=== PATIENT | female | born 1985 | race Caucasian/White ===

== ENCOUNTER 2017-11-14 00:09 | Inpatient (IN) | payer OTHER ==
[2017-11-14] MEDS ORDERED: Carboprost Tromethamine 250 MCG/1 ML Amp IM PRN (00:14)
[2017-11-14] MEDS ORDERED: Sodium Chloride 0.9% 10 ML Syringe FLUSH PRN (00:14)
[2017-11-14] MEDS ORDERED: Methylergonovine 0.2 MG/1 ML Amp IM PRN (00:14)
[2017-11-14] MEDS ORDERED: Nalbuphine 10 MG/1 ML Vial IVPUSH PRN (00:14)
[2017-11-14] MEDS ORDERED: Lidocaine 1% 50 ML MDV INJECT PRN (00:14)
[2017-11-14] MEDS ORDERED: Butorphanol 1 MG/ML SDV IVPUSH PRN (00:14)
[2017-11-14] MEDS ORDERED: Terbutaline 1 MG/ML SDV SUBCUT PRN (00:14)
[2017-11-14] MEDS ORDERED: Misoprostol 200 MCG Tab PO PRN (00:14)
[2017-11-14] MEDS ORDERED: Water For Irrigation,Sterile 1,000 ML Container IRR PRN (00:14)
[2017-11-14] MEDS ORDERED: Sodium Chloride 0.9% 2.5 ML Syringe FLUSH PRN (00:14)
[2017-11-14] MEDS ORDERED: Oxytocin/0.9 % Sodium Chloride 30 UNIT/500 ML BAG IV SCH (00:15)
[2017-11-14] MEDS ORDERED: Lactated Ringers 1,000 ML IV SCH (00:15)
[2017-11-14] MEDS ORDERED: Misoprostol 25 MCG (1/4 of 100 MCG) Tab VAG SCH (00:15)
[2017-11-14] MEDS: Misoprostol 25 MCG (1/4 of 100 MCG) Tab PO SCH (01:51)
--- NOTE | 2017-11-14 07:11 | PCM.LDHP ---
L&D History of Present Illness - General Date of Service: 11/14/17 Admit Problem/Dx: Patient Status Order with Admit Dx/Problem 11/14/17 00:14 Patient Status [ADT] Routine Admission Diagnosis/Problem Admission Diagnosis/Problem - planned 11/14/17 07:06 32yo EDC 11/14/2017 40wk today. IOL term, A+/RI/GBS neg. Source of Information: Patient History Limitations: Reports: No Limitations - History of Present Illness Improves with: Reports: None Worsens with: Reports: None Associated Symptoms: Reports: N - Related Data Allergies/Adverse Reactions: Allergies Allergy/AdvReac Type Severity Reaction Status Date / Time No Known Allergies Allergy Verified 11/14/17 00:14 Past Medical History - Past Health History Medical/Surgical History: Denies Medical/Surgical History [employer] History: Reports: Social & Family History - Family History Family Medical History: Noncontributory - Tobacco Use Smoking Status *Q: Former Smoker Years of Tobacco use: 3 Packs/Tins Daily: 0.5 Used Tobacco, but Quit: Yes Month Tobacco Last Used: February Second Hand Smoke Exposure: No - Caffeine Use Caffeine Use: Reports: Coffee - Recreational Drug Use Recreational Drug Use: No H&P Review of Systems - Review of Systems: Review Of Systems: See Below General: Reports: No Symptoms HEENT: Reports: No Symptoms Pulmonary: Reports: No Symptoms Cardiovascular: Reports: No Symptoms Gastrointestinal: Reports: No Symptoms Genitourinary: Reports: No Symptoms Musculoskeletal: Reports: No Symptoms Skin: Reports: No Symptoms Psychiatric: Reports: No Symptoms Neurological: Reports: No Symptoms Hematologic/Lymphatic: Reports: No Symptoms Immunologic: Reports: No Symptoms L&D Exam - Exam Exam: See Below - Vital Signs Weight: 98.43 kg - OB Specific Contraction Intensity: Mild to Moderate Movement: Active Heart Tones: Present Heart Rate (FHR) Variability: Moderate (6-25 bmp) Presentation: Vertex - Yu Score Yu Score Cervix Position: Posterior Yu Score Consistency: Medium Yu Score Effacement: 31-50% Yu Score Dilation: Closed Yu Score 's Station: -2 Yu Score Total: 3 - Exam General: Alert, Oriented, Cooperative HEENT: Hearing Intact Lungs: Clear to Auscultation, Normal Respiratory Effort Cardiovascular: Regular Rate, Regular Rhythm, Normal S1, Normal S2 GI/Abdominal Exam: Soft, Non-Tender (GRAVID) Rectal Exam: Deferred Back Exam: Full Range of Motion Extremities: Normal Range of Motion, Non-Tender, No Pedal Edema, Normal Capillary Refill Neurological: Reflexes Equal Bilateral, Normal Speech, Normal Tone Psychiatric: Alert, Normal Affect, Normal Mood - Patient Data Lab Results Last 24 hrs: Laboratory Results - last 24 hr 11/14/17 11/14/17 Range/Units 00:35 00:35 WBC 15.08 H (4.0-11.0) K/uL RBC 3.95 L (4.30-5.90) M/uL Hgb 12.4 (12.0-16.0) g/dL Hct 37.2 (36.0-46.0) % MCV 94.2 (80.0-98.0) fL MCH 31.4 (27.0-32.0) pg MCHC 33.3 (31.0-37.0) g/dL RDW Std Deviation 43.0 (28.0-62.0) fl RDW Coeff of Carol Ann 13 (11.0-15.0) % Plt Count 215 (150-400) K/uL MPV 11.40 (7.40-12.00) fL Blood Type A POSITIVE Antibody Screen NEGATIVE Result Diagrams: 11/14/17 00:35 - Problem List (1) Supervision of normal IUP (intrauterine ) in primigravida SNOMED Code(s): 25650508, 920519077, 241271142 ICD Code: Z34.00 - ENCNTR FOR SUPRVSN OF NORMAL FIRST , UNSP TRIMESTER Status: Acute Priority: High Current Visit: Yes Qualifiers: Trimester: third trimester Qualified Code(s): Z34.03 - Encounter for supervision of normal first , third trimester Problem List Initiated/Reviewed/Updated: Yes Orders Last 24hrs: Active Orders 24 hr Category Date Time Status Patient Status [ADT] Routine ADT 11/14/17 00:14 Active Bedrest Bathroom Privileges [RC] ASDIRECTED Care 11/14/17 00:14 Active Communication Order [RC] ASDIRECTED Care 11/14/17 00:14 Active May Shower [RC] ASDIRECTED Care 11/14/17 00:14 Active Notify Provider [RC] PRN Care 11/14/17 00:14 Active Oxygen Therapy [RC] ASDIRECTED Care 11/14/17 00:14 Active Up ad Emilia [RC] ASDIRECTED Care 11/14/17 00:14 Active Vital Signs [RC] PER UNIT ROUTINE Care 11/14/17 00:14 Active Clear Liquid Diet [DIET] Diet 11/14/17 Breakfast Active Butorphanol [Stadol] Med 11/14/17 00:14 Active 1 mg IVPUSH Q1H PRN Carboprost Tromethamine [Hemabate DS] Med 11/14/17 00:14 Active 250 mcg IM ASDIRECTED PRN Lactated Ringers [Ringers, Lactated] 1,000 ml Med 11/14/17 00:15 Active IV ASDIRECTED Lidocaine 1% [Xylocaine 1%] Med 11/14/17 00:14 Active 50 ml INJECT .ONCE PRN Methylergonovine [Methergine] Med 11/14/17 00:14 Active 0.2 mg IM ASDIRECTED PRN Misoprostol [Cytotec] Med 11/14/17 00:14 Active 200 mcg PO .ONCE PRN Misoprostol [Cytotec] Med 11/14/17 00:15 Active 25 mcg PO .ONCE Misoprostol [Cytotec] Med 11/14/17 00:14 Active 25 mcg PO Q4H PRN Misoprostol [Cytotec] Med 11/14/17 00:15 Active 25 mcg VAG .ONCE Misoprostol [Cytotec] Med 11/14/17 00:14 Active 25 mcg VAG Q4H PRN Nalbuphine [Nubain] Med 11/14/17 00:14 Active 10 mg IVPUSH Q1H PRN Oxytocin/0.9 % Sodium Chloride [Oxytocin 30 Unit/500 ML Med 11/14/17 00:15 Active -NS] 30 unit in 500 ml IV TITRATE Sodium Chloride 0.9% [Saline Flush] Med 11/14/17 00:14 Active 10 ml FLUSH ASDIRECTED PRN Sodium Chloride 0.9% [Saline Flush] Med 11/14/17 00:14 Active 2.5 ml FLUSH ASDIRECTED PRN Terbutaline [Brethine] Med 11/14/17 00:14 Active 0.25 mg SUBCUT ASDIRECTED PRN Water For Irrigation,Sterile [Sterile Water for Med 11/14/17 00:14 Active Irrigation] 1,000 ml IRR ASDIRECTED PRN Scalp Electrode [WOMSER] Per Unit Routine Oth 11/14/17 00:14 Ordered Medication Administration Instruction [OM.PC] Q3H Oth 11/14/17 00:15 Ordered Peripheral IV Insertion Adult [OM.PC] Routine Oth 11/14/17 00:14 Ordered Resuscitation Status Routine Resus Stat 11/14/17 00:14 Ordered Medication Orders Butorphanol Tartrate (Stadol) 1 mg IVPUSH Q1H PRN PRN Reason: Pain Carboprost Tromethamine (Hemabate Ds) 250 mcg IM ASDIRECTED PRN PRN Reason: Post Hemorrhage Lactated Ringer's (Ringers, Lactated) 1,000 mls @ 150 mls/hr IV ASDIRECTED LESIA Oxytocin/Sodium Chloride (Oxytocin 30 Unit/500 Ml-Ns) 30 unit in 500 mls @ 999 mls/hr IV TITRATE LESIA Lidocaine HCl (Xylocaine 1%) 50 ml INJECT .ONCE PRN PRN Reason: Laceration repair Methylergonovine Maleate (Methergine) 0.2 mg IM ASDIRECTED PRN PRN Reason: Post Hemorrhage Misoprostol (Cytotec) 200 mcg PO .ONCE PRN PRN Reason: Post Hemorrhage Misoprostol (Cytotec) 25 mcg VAG .ONCE [facility] Last Admin: 11/14/17 01:52 Dose: 25 mcg Misoprostol (Cytotec) 25 mcg VAG Q4H PRN PRN Reason: Cervical Ripening Misoprostol (Cytotec) 25 mcg PO Q4H PRN PRN Reason: Cervical Ripening Misoprostol (Cytotec) 25 mcg PO .ONCE [facility] Last Admin: 11/14/17 01:51 Dose: 25 mcg Nalbuphine HCl (Nubain) 10 mg IVPUSH Q1H PRN PRN Reason: Pain (severe 7-10) Sodium Chloride (Saline Flush) 10 ml FLUSH ASDIRECTED PRN PRN Reason: Keep Vein Open Sodium Chloride (Saline Flush) 2.5 ml FLUSH ASDIRECTED PRN PRN Reason: Keep Vein Open Sterile Water (Sterile Water For Irrigation) 1,000 ml IRR ASDIRECTED PRN PRN Reason: delivery Terbutaline Sulfate (Brethine) 0.25 mg SUBCUT ASDIRECTED PRN PRN Reason: Tacysystole Assessment/Plan Comment:: IOL Term A:32yo EDC 11/14/2017 40wk today. IOL term, A+/RI/GBS neg. P: Admit, IOL cytotec to pitocin, GBS neg, anticipate , Dr Carvajal updated on pt status
[2017-11-14] MEDS: Misoprostol 25 MCG (1/4 of 100 MCG) Tab VAG PRN ×3 (09:02→17:33)
[2017-11-14] MEDS: Misoprostol 25 MCG (1/4 of 100 MCG) Tab PO PRN ×3 (09:02→17:34)
[2017-11-15] MEDS: Misoprostol 25 MCG (1/4 of 100 MCG) Tab VAG PRN ×2 (06:13→10:45)
[2017-11-15] MEDS: Misoprostol 25 MCG (1/4 of 100 MCG) Tab PO SCH (06:13)
[2017-11-15] MEDS: Misoprostol 25 MCG (1/4 of 100 MCG) Tab PO PRN (10:45)
[2017-11-15] MEDS ORDERED: Octyl 2-Cyanoacrylate 1 Tube ONE (15:32)
[2017-11-15] MEDS ORDERED: Sodium Chloride 0.9% 10 ML Syringe FLUSH PRN (15:38)
[2017-11-15] MEDS ORDERED: Sodium Chloride 0.9% 2.5 ML Syringe FLUSH PRN (15:38)
[2017-11-15] MEDS ORDERED: ceFAZolin 2 GM in Premix Bag 1 BAG IV ONE (15:38)
[2017-11-15] MEDS ORDERED: Lactated Ringers 1,000 ML IV SCH ×2 (15:45→18:30)
[2017-11-15] MEDS ORDERED: Citric Acid/Sodium Citrate Solution 30 ML Cup PO SCH (15:45)
[2017-11-15] MEDS ORDERED: Oxytocin/0.9 % Sodium Chloride 30 UNIT/500 ML BAG IV SCH (15:45)
--- NOTE | 2017-11-15 16:25 | PCM.PREANE ---
Preanesthetic Assessment - Anesthesia/Transfusion/Family Hx Anesthesia History: No Prior Anesthesia Family History of Anesthesia Reaction: Yes Transfusion History: No Prior Transfusion(s) - Review of Systems General: No Symptoms Pulmonary: No Symptoms Cardiovascular: No Symptoms Gastrointestinal: No Symptoms Neurological: No Symptoms Other: Reports: None - Physical Assessment NPO Status Date: 11/15/17 NPO Status Time: 12:00 Height: 5 ft 9 in Weight: 217 lb ASA Class: 1 Mental Status: Alert & Oriented x3 Airway Class: Mallampati = 2 Dentition: Reports: Normal Dentition Thyro-Mental Finger Breadths: 3 Mouth Opening Finger Breadths: 3 - Lab Values: Laboratory Last Values WBC 15.08 K/uL (4.0-11.0) H 11/14/17 00:35 RBC 3.95 M/uL (4.30-5.90) L 11/14/17 00:35 Hgb 12.4 g/dL (12.0-16.0) 11/14/17 00:35 Hct 37.2 % (36.0-46.0) 11/14/17 00:35 MCV 94.2 fL (80.0-98.0) 11/14/17 00:35 MCH 31.4 pg (27.0-32.0) 11/14/17 00:35 MCHC 33.3 g/dL (31.0-37.0) 11/14/17 00:35 RDW Std Deviation 43.0 fl (28.0-62.0) 11/14/17 00:35 RDW Coeff of Carol Ann 13 % (11.0-15.0) 11/14/17 00:35 Plt Count 215 K/uL (150-400) 11/14/17 00:35 MPV 11.40 fL (7.40-12.00) 11/14/17 00:35 Blood Type A POSITIVE 11/14/17 00:35 Antibody Screen NEGATIVE 11/14/17 00:35 - Allergies Allergies/Adverse Reactions: Allergies Allergy/AdvReac Type Severity Reaction Status Date / Time No Known Allergies Allergy Verified 11/14/17 00:14 - Acknowledgements Anesthesia Type Planned: Spinal (intraspinal duramorph planned ....with nubain IV after delivery) PreAnesthesia Questionnaire - Past Health History Medical/Surgical History: Denies 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 Smoking Status *Q: Former Smoker Tobacco Use Within Last Twelve Months: Cigarettes Second Hand Smoke Exposure: No Recreational Drug Use History: No - CURRENT (IN HOUSE) MEDS Current Meds: Current Medications Butorphanol Tartrate (Stadol) 1 mg IVPUSH Q1H PRN PRN Reason: Pain Carboprost Tromethamine (Hemabate Ds) 250 mcg IM ASDIRECTED PRN PRN Reason: Post Hemorrhage Citric Acid/Sodium Citrate (Bicitra Solution) 30 ml PO .ONCE LESIA Lactated Ringer's (Ringers, Lactated) 1,000 mls @ 150 mls/hr IV ASDIRECTED LESIA Oxytocin/Sodium Chloride (Oxytocin 30 Unit/500 Ml-Ns) 30 unit in 500 mls @ 999 mls/hr IV TITRATE LESIA Oxytocin/Sodium Chloride (Oxytocin 30 Unit/500 Ml-Ns) 30 unit in 500 mls @ 250 mls/hr IV TITRATE LESIA Lactated Ringer's (Ringers, Lactated) 1,000 mls @ 500 mls/hr IV .BOLUS LESIA Lidocaine HCl (Xylocaine 1%) 50 ml INJECT .ONCE PRN PRN Reason: Laceration repair Methylergonovine Maleate (Methergine) 0.2 mg IM ASDIRECTED PRN PRN Reason: Post Hemorrhage Misoprostol (Cytotec) 200 mcg PO .ONCE PRN PRN Reason: Post Hemorrhage Misoprostol (Cytotec) 25 mcg VAG .ONCE LESIA Last Admin: 11/14/17 01:52 Dose: 25 mcg Misoprostol (Cytotec) 25 mcg VAG Q4H PRN PRN Reason: Cervical Ripening Last Admin: 11/15/17 10:45 Dose: 25 mcg Misoprostol (Cytotec) 25 mcg PO Q4H PRN PRN Reason: Cervical Ripening Last Admin: 11/15/17 10:45 Dose: 25 mcg Misoprostol (Cytotec) 25 mcg PO .ONCE LESIA Last Admin: 11/15/17 06:13 Dose: 25 mcg Nalbuphine HCl (Nubain) 10 mg IVPUSH Q1H PRN PRN Reason: Pain (severe 7-10) Sodium Chloride (Saline Flush) 10 ml FLUSH ASDIRECTED PRN PRN Reason: Keep Vein Open Sodium Chloride (Saline Flush) 2.5 ml FLUSH ASDIRECTED PRN PRN Reason: Keep Vein Open Sodium Chloride (Saline Flush) 10 ml FLUSH ASDIRECTED PRN PRN Reason: Keep Vein Open Sodium Chloride (Saline Flush) 2.5 ml FLUSH ASDIRECTED PRN PRN Reason: Keep Vein Open Sterile Water (Sterile Water For Irrigation) 1,000 ml IRR ASDIRECTED PRN PRN Reason: delivery Terbutaline Sulfate (Brethine) 0.25 mg SUBCUT ASDIRECTED PRN PRN Reason: Tacysystole Discontinued Medications Cefazolin Sodium/Dextrose 2 gm (/ Premix) 50 mls @ 100 mls/hr IV ONETIME ONE Stop: 11/15/17 16:07 Octyl Cyanoacrylate (Dermabond Advance) Confirm Administered Dose 1 applic .ROUTE .[facility] ONE Stop: 11/15/17 15:33
[2017-11-15] MEDS ORDERED: ePHEDrine 50 MG/ML SDV ONE ×2 (17:10→17:20)
[2017-11-15] MEDS ORDERED: Nalbuphine 10 MG/1 ML Vial ONE ×2 (17:10→17:20)
[2017-11-15] MEDS ORDERED: Oxytocin 10 Units/1 ML SDV ONE ×2 (17:10→17:20)
[2017-11-15] MEDS ORDERED: Morphine PF 1 MG/ML Amp ONE (17:13)
[2017-11-15] MEDS ORDERED: ceFAZolin 1 GM Vial ONE ×2 (17:20→17:21)
[2017-11-15] MEDS ORDERED: Acetaminophen/oxyCODONE 325-5 MG Tab PO PRN ×3 (18:13→18:29)
[2017-11-15] MEDS ORDERED: Nalbuphine 10 MG/1 ML Vial IVPUSH PRN (18:13)
[2017-11-15] MEDS ORDERED: fentaNYL 100 MCG/2 ML SDV IVPUSH PRN (18:13)
[2017-11-15] MEDS ORDERED: diphenhydrAMINE 50 MG/ML SDV IVPUSH PRN (18:29)
[2017-11-15] MEDS ORDERED: Bisacodyl 10 MG Supp RECTAL PRN (18:29)
[2017-11-15] MEDS ORDERED: Ondansetron 4 MG/2 ML SDV IVPUSH PRN (18:29)
[2017-11-15] MEDS ORDERED: Lanolin 100% Cream 7 GM Tube TOP PRN (18:29)
--- NOTE | 2017-11-15 18:32 | PCM.OPNOTE ---
- General Post-Op/Procedure Note Date of Surgery/Procedure: 11/15/17 Operative Procedure(s): Primaru C/section Pre Op Diagnosis: [id number]+ Falie to progressr Post-Op Diagnosis: Same Primary Surgeon: Aquiles Carvajal EBL in mLs: 650 Complications: None Condition: Good
--- NOTE | 2017-11-15 18:46 | PCM48HPAN ---
Post Anesthesia Note - EVALUATION WITHIN 48HRS OF ANESTHETIC Vital Signs in Normal Range: Yes Patient Participated in Evaluation: Yes Respiratory Function Stable: Yes Airway Patent: Yes Cardiovascular Function Stable: Yes Hydration Status Stable: Yes Pain Control Satisfactory: Yes Nausea and Vomiting Control Satisfactory: Yes Mental Status Recovered: Yes
[2017-11-15] MEDS: Ketorolac 30 MG/ML SDV IVPUSH SCH (18:57)
[2017-11-15] MEDS: Docusate Sodium 100 MG Cap PO SCH (21:45)
[2017-11-16] MEDS: Ketorolac 30 MG/ML SDV IVPUSH SCH ×4 (00:22→18:27)
[2017-11-16] MEDS: Docusate Sodium 100 MG Cap PO SCH ×2 (09:09→20:56)
--- NOTE | 2017-11-16 10:04 | PCM.SURGPN ---
- General Info POD#: 1 Functional Status: Reports: Pain Controlled - Review of Systems General: Reports: No Symptoms HEENT: Reports: No Symptoms Pulmonary: Reports: No Symptoms Cardiovascular: Reports: No Symptoms Gastrointestinal: Reports: No Symptoms Genitourinary: Reports: No Symptoms Musculoskeletal: Reports: No Symptoms Skin: Reports: No Symptoms Neurological: Reports: No Symptoms Psychiatric: Reports: No Symptoms - Patient Data Vitals - Most Recent: Last Vital Signs Temp 37.1 C 11/16/17 09:32 Pulse 88 11/16/17 09:32 Resp 20 11/16/17 09:32 BP 131/65 11/16/17 09:32 Pulse Ox 97 11/16/17 09:32 Weight - Most Recent: 98.43 kg I&O - Last 24 Hours: Intake & Output 11/15/17 11/16/17 11/16/17 22:59 06:59 14:59 Intake Total 1300 2100 Output Total 250 1000 450 Balance 1050 1100 -450 Lab Results Last 24 Hrs: Laboratory Results - last 24 hr 11/16/17 Range/Units 05:02 Hgb 12.1 (12.0-16.0) g/dL Hct 36.5 (36.0-46.0) % Med Orders - Current: Current Medications Bisacodyl (Dulcolax) 10 mg RECTAL .ONCE PRN PRN Reason: Constipation Butorphanol Tartrate (Stadol) 1 mg IVPUSH Q1H PRN PRN Reason: Pain Carboprost Tromethamine (Hemabate Ds) 250 mcg IM ASDIRECTED PRN PRN Reason: Post Hemorrhage Citric Acid/Sodium Citrate (Bicitra Solution) 30 ml PO .ONCE [facility] Diphenhydramine HCl (Benadryl) 25 mg IVPUSH Q6H PRN PRN Reason: Itching or Nausea Docusate Sodium (Colace) 100 mg PO BID [facility] Last Admin: 11/16/17 09:09 Dose: 100 mg Emollient Ointment (Lansinoh Hpa) 0 gm TOP ASDIRECTED PRN PRN Reason: Sore Nipples Fentanyl (Sublimaze) 50 mcg IVPUSH Q5M PRN PRN Reason: Pain (severe 7-10) Stop: 11/16/17 18:13 Lactated Ringer's (Ringers, Lactated) 1,000 mls @ 150 mls/hr IV ASDIRECTED [facility] Oxytocin/Sodium Chloride (Oxytocin 30 Unit/500 Ml-Ns) 30 unit in 500 mls @ 999 mls/hr IV TITRATE [facility] Oxytocin/Sodium Chloride (Oxytocin 30 Unit/500 Ml-Ns) 30 unit in 500 mls @ 250 mls/hr IV TITRATE [facility] Lactated Ringer's (Ringers, Lactated) 1,000 mls @ 500 mls/hr IV .BOLUS [facility] Lactated Ringer's (Ringers, Lactated) 1,000 mls @ 125 mls/hr IV ASDIRECTED [facility] Last Admin: 11/15/17 20:56 Dose: 125 mls/hr Ibuprofen (Motrin) 800 mg PO Q8H PRN PRN Reason: mild pain or fever Ketorolac Tromethamine (Toradol) 30 mg IVPUSH Q6H [facility] Stop: 11/16/17 18:31 Last Admin: 11/16/17 06:27 Dose: 30 mg Lidocaine HCl (Xylocaine 1%) 50 ml INJECT .ONCE PRN PRN Reason: Laceration repair Methylergonovine Maleate (Methergine) 0.2 mg IM ASDIRECTED PRN PRN Reason: Post Hemorrhage Misoprostol (Cytotec) 200 mcg PO .ONCE PRN PRN Reason: Post Hemorrhage Misoprostol (Cytotec) 25 mcg VAG .ONCE [facility] Last Admin: 11/14/17 01:52 Dose: 25 mcg Misoprostol (Cytotec) 25 mcg VAG Q4H PRN PRN Reason: Cervical Ripening Last Admin: 11/15/17 10:45 Dose: 25 mcg Misoprostol (Cytotec) 25 mcg PO Q4H PRN PRN Reason: Cervical Ripening Last Admin: 11/15/17 10:45 Dose: 25 mcg Misoprostol (Cytotec) 25 mcg PO .ONCE [facility] Last Admin: 11/15/17 06:13 Dose: 25 mcg Nalbuphine HCl (Nubain) 10 mg IVPUSH Q1H PRN PRN Reason: Pain (severe 7-10) Nalbuphine HCl (Nubain) 5 mg IVPUSH Q3H PRN PRN Reason: Pruritis Stop: 11/16/17 18:14 Ondansetron HCl (Zofran) 4 mg IVPUSH Q4H PRN PRN Reason: Nausea/Vomiting Oxycodone/Acetaminophen (Percocet 325-5 Mg) 1 tab PO ONETIME PRN PRN Reason: Pain (moderate 4-6) Oxycodone/Acetaminophen (Percocet 325-5 Mg) 1 tab PO Q4H PRN PRN Reason: Pain (moderate 4-6) Oxycodone/Acetaminophen (Percocet 325-5 Mg) 2 tab PO Q4H PRN PRN Reason: Pain (moderate 4-6) Sodium Chloride (Saline Flush) 10 ml FLUSH ASDIRECTED PRN PRN Reason: Keep Vein Open Sodium Chloride (Saline Flush) 2.5 ml FLUSH ASDIRECTED PRN PRN Reason: Keep Vein Open Sodium Chloride (Saline Flush) 10 ml FLUSH ASDIRECTED PRN PRN Reason: Keep Vein Open Sodium Chloride (Saline Flush) 2.5 ml FLUSH ASDIRECTED PRN PRN Reason: Keep Vein Open Sterile Water (Sterile Water For Irrigation) 1,000 ml IRR ASDIRECTED PRN PRN Reason: delivery Terbutaline Sulfate (Brethine) 0.25 mg SUBCUT ASDIRECTED PRN PRN Reason: Tacysystole Discontinued Medications Cefazolin Sodium (Ancef) Confirm Administered Dose 1 gm .ROUTE .STK-MED ONE Stop: 11/15/17 17:21 Cefazolin Sodium (Ancef) Confirm Administered Dose 1 gm .ROUTE .STK-MED ONE Stop: 11/15/17 17:22 Ephedrine Sulfate (Ephedrine Sulfate) Confirm Administered Dose 50 mg .ROUTE .STK-MED ONE Stop: 11/15/17 17:11 Ephedrine Sulfate (Ephedrine Sulfate) Confirm Administered Dose 50 mg .ROUTE .STK-MED ONE Stop: 11/15/17 17:21 Cefazolin Sodium/Dextrose 2 gm (/ Premix) 50 mls @ 100 mls/hr IV ONETIME ONE Stop: 11/15/17 16:07 Last Admin: 11/15/17 23:06 Dose: Not Given Morphine Sulfate (Duramorph Pf) Confirm Administered Dose 1 mg .ROUTE .STK-MED ONE Stop: 11/15/17 17:14 Nalbuphine HCl (Nubain) Confirm Administered Dose 10 mg .ROUTE .STK-MED ONE Stop: 11/15/17 17:11 Nalbuphine HCl (Nubain) Confirm Administered Dose 10 mg .ROUTE .STK-MED ONE Stop: 11/15/17 17:21 Octyl Cyanoacrylate (Dermabond Advance) Confirm Administered Dose 1 applic .ROUTE .STK-MED ONE Stop: 11/15/17 15:33 Oxytocin (Pitocin) Confirm Administered Dose 20 unit .ROUTE .STK-MED ONE Stop: 11/15/17 17:11 Oxytocin (Pitocin) Confirm Administered Dose 20 unit .ROUTE .STK-MED ONE Stop: 11/15/17 17:21 - Exam Wound/Incisions: Healing Well General: Alert, Oriented HEENT: Pupils Equal Neck: Supple Lungs: Clear to Auscultation, Normal Respiratory Effort Cardiovascular: Regular Rate, Regular Rhythm GI/Abdominal Exam: Normal Bowel Sounds, Soft, Non-Tender, No Organomegaly, No Distention, No Abnormal Bruit, No Mass, Pelvis Stable Extremities: Normal Inspection, Normal Range of Motion, Non-Tender, No Pedal Edema, Normal Capillary Refill Skin: Warm, Dry, Intact Neurological: No New Focal Deficit Psy/Mental Status: Alert, Normal Affect, Normal Mood - Problem List Review Problem List Initiated/Reviewed/Updated: Yes - My Orders Last 24 Hours: Active Orders 24 hr Category Date Time Status Patient Status [ADT] Routine ADT 11/15/17 18:29 Active Ambulate [RC] PER UNIT ROUTINE Care 11/15/17 18:29 Active Antiembolic Devices [RC] PER UNIT ROUTINE Care 11/15/17 18:29 Active Bradycardia-Neuroaxis [employer] [RC] ROUTINE Care 11/15/17 18:13 Active Communication Order [RC] PER UNIT ROUTINE Care 11/15/17 18:29 Active Communication Order [RC] PER UNIT ROUTINE Care 11/15/17 18:29 Active Communication Order [RC] Per Unit Routine Care 11/15/17 18:29 Active Hypertension-Neuroaxis [employer] [RC] ROUTINE Care 11/15/17 18:13 Active Hypotension-Neuroaxis [employer] [RC] ROUTINE Care 11/15/17 18:13 Active May Shower [RC] ASDIRECTED Care 11/15/17 18:29 Active Notify Provider Vital Signs [RC] PRN Care 11/15/17 15:40 Active RT Incentive Spirometry [RC] Q2HWA Care 11/15/17 18:29 Active Up ad Emilia [RC] ASDIRECTED Care 11/15/17 15:38 Active Vital Signs [RC] Q1H Care 11/15/17 18:13 Active Acetaminophen/oxyCODONE [Percocet 325-5 MG] Med 11/15/17 18:13 Active 1 tab PO ONETIME PRN Acetaminophen/oxyCODONE [Percocet 325-5 MG] Med 11/15/17 18:29 Active 1 tab PO Q4H PRN Acetaminophen/oxyCODONE [Percocet 325-5 MG] Med 11/15/17 18:29 Active 2 tab PO Q4H PRN Bisacodyl [Dulcolax] Med 11/15/17 18:29 Active 10 mg RECTAL .ONCE PRN Citric Acid/Sodium Citrate [Bicitra Solution] Med 11/15/17 15:45 Active 30 ml PO .ONCE Docusate Sodium [Colace] Med 11/15/17 21:00 Active 100 mg PO BID Ibuprofen [Motrin] Med 11/17/17 00:30 Active 800 mg PO Q8H PRN Ketorolac [Toradol] Med 11/15/17 18:30 Active 30 mg IVPUSH Q6H Lactated Ringers [Ringers, Lactated] 1,000 ml Med 11/15/17 15:45 Active IV .BOLUS Lactated Ringers [Ringers, Lactated] 1,000 ml Med 11/15/17 18:30 Active IV ASDIRECTED Lanolin [Lansinoh HPA] Med 11/15/17 18:29 Active See Dose Instructions TOP ASDIRECTED PRN Nalbuphine [Nubain] Med 11/15/17 18:13 Active 5 mg IVPUSH Q3H PRN Ondansetron [Zofran] Med 11/15/17 18:29 Active 4 mg IVPUSH Q4H PRN Oxytocin/0.9 % Sodium Chloride [Oxytocin 30 Unit/500 ML Med 11/15/17 15:45 Active -NS] 30 unit in 500 ml IV TITRATE Sodium Chloride 0.9% [Saline Flush] Med 11/15/17 15:38 Active 10 ml FLUSH ASDIRECTED PRN Sodium Chloride 0.9% [Saline Flush] Med 11/15/17 15:38 Active 2.5 ml FLUSH ASDIRECTED PRN diphenhydrAMINE [Benadryl] Med 11/15/17 18:29 Active 25 mg IVPUSH Q6H PRN fentaNYL [Sublimaze] Med 11/15/17 18:13 Active 50 mcg IVPUSH Q5M PRN AN Neuroaxis [employer] Precaution Reflex [OM.PC] PER Oth 11/15/17 18:15 Ordered UNIT ROUTINE AN Neuroaxis [employer] Precaution Reflex [OM.PC] PER Oth 11/16/17 18:15 Ordered UNIT ROUTINE Assess Lochia [WOMSER] Per Unit Routine Oth 11/15/17 18:29 Ordered Assess Uterine Involution [WOMSER] Per Unit Routine Oth 11/15/17 18:29 Ordered Breast Pump [WOMSER] Per Unit Routine Oth 11/15/17 18:29 Ordered Peripheral IV Discontinue [OM.PC] Routine Oth 11/15/17 18:29 Ordered Peripheral IV Insertion Adult [OM.PC] Routine Ot 11/15/17 15:38 Ordered Schedule Procedure [COMM] Per Unit Routine Oth 11/15/17 15:38 Ordered Sequential Compression Device [OM.PC] Per Unit Routine Oth 11/15/17 18:29 Ordered Resuscitation Status Routine Resus Stat 11/15/17 15:38 Ordered Medication Orders Bisacodyl (Dulcolax) 10 mg RECTAL .ONCE PRN PRN Reason: Constipation Butorphanol Tartrate (Stadol) 1 mg IVPUSH Q1H PRN PRN Reason: Pain Carboprost Tromethamine (Hemabate Ds) 250 mcg IM ASDIRECTED PRN PRN Reason: Post Hemorrhage Citric Acid/Sodium Citrate (Bicitra Solution) 30 ml PO .ONCE [facility] Diphenhydramine HCl (Benadryl) 25 mg IVPUSH Q6H PRN PRN Reason: Itching or Nausea Docusate Sodium (Colace) 100 mg PO BID [facility] Last Admin: 11/16/17 09:09 Dose: 100 mg Admin: 11/15/17 21:45 Dose: 100 mg Emollient Ointment (Lansinoh Hpa) 0 gm TOP ASDIRECTED PRN PRN Reason: Sore Nipples Fentanyl (Sublimaze) 50 mcg IVPUSH Q5M PRN PRN Reason: Pain (severe 7-10) Stop: 11/16/17 18:13 Lactated Ringer's (Ringers, Lactated) 1,000 mls @ 150 mls/hr IV ASDIRECTED [facility] Oxytocin/Sodium Chloride (Oxytocin 30 Unit/500 Ml-Ns) 30 unit in 500 mls @ 999 mls/hr IV TITRATE [facility] Oxytocin/Sodium Chloride (Oxytocin 30 Unit/500 Ml-Ns) 30 unit in 500 mls @ 250 mls/hr IV TITRATE [facility] Lactated Ringer's (Ringers, Lactated) 1,000 mls @ 500 mls/hr IV .BOLUS [facility] Lactated Ringer's (Ringers, Lactated) 1,000 mls @ 125 mls/hr IV ASDIRECTED [facility] Last Admin: 11/15/17 20:56 Dose: 125 mls/hr Ibuprofen (Motrin) 800 mg PO Q8H PRN PRN Reason: mild pain or fever Ketorolac Tromethamine (Toradol) 30 mg IVPUSH Q6H [facility] Stop: 11/16/17 18:31 Last Admin: 11/16/17 06:27 Dose: 30 mg Admin: 11/16/17 00:22 Dose: 30 mg Admin: 11/15/17 18:57 Dose: 30 mg Lidocaine HCl (Xylocaine 1%) 50 ml INJECT .ONCE PRN PRN Reason: Laceration repair Methylergonovine Maleate (Methergine) 0.2 mg IM ASDIRECTED PRN PRN Reason: Post Hemorrhage Misoprostol (Cytotec) 200 mcg PO .ONCE PRN PRN Reason: Post Hemorrhage Misoprostol (Cytotec) 25 mcg VAG .ONCE [facility] Last Admin: 11/14/17 01:52 Dose: 25 mcg Misoprostol (Cytotec) 25 mcg VAG Q4H PRN PRN Reason: Cervical Ripening Last Admin: 11/15/17 10:45 Dose: 25 mcg Admin: 11/15/17 06:13 Dose: 25 mcg Admin: 11/14/17 17:33 Dose: 25 mcg Admin: 11/14/17 13:25 Dose: 25 mcg Admin: 11/14/17 09:02 Dose: 25 mcg Misoprostol (Cytotec) 25 mcg PO Q4H PRN PRN Reason: Cervical Ripening Last Admin: 11/15/17 10:45 Dose: 25 mcg Admin: 11/14/17 17:34 Dose: 25 mcg Admin: 11/14/17 13:25 Dose: 25 mcg Admin: 11/14/17 09:02 Dose: 25 mcg Misoprostol (Cytotec) 25 mcg PO .ONCE [facility] Last Admin: 11/15/17 06:13 Dose: 25 mcg Admin: 11/14/17 01:51 Dose: 25 mcg Nalbuphine HCl (Nubain) 10 mg IVPUSH Q1H PRN PRN Reason: Pain (severe 7-10) Nalbuphine HCl (Nubain) 5 mg IVPUSH Q3H PRN PRN Reason: Pruritis Stop: 11/16/17 18:14 Ondansetron HCl (Zofran) 4 mg IVPUSH Q4H PRN PRN Reason: Nausea/Vomiting Oxycodone/Acetaminophen (Percocet 325-5 Mg) 1 tab PO ONETIME PRN PRN Reason: Pain (moderate 4-6) Oxycodone/Acetaminophen (Percocet 325-5 Mg) 1 tab PO Q4H PRN PRN Reason: Pain (moderate 4-6) Oxycodone/Acetaminophen (Percocet 325-5 Mg) 2 tab PO Q4H PRN PRN Reason: Pain (moderate 4-6) Sodium Chloride (Saline Flush) 10 ml FLUSH ASDIRECTED PRN PRN Reason: Keep Vein Open Sodium Chloride (Saline Flush) 2.5 ml FLUSH ASDIRECTED PRN PRN Reason: Keep Vein Open Sodium Chloride (Saline Flush) 10 ml FLUSH ASDIRECTED PRN PRN Reason: Keep Vein Open Sodium Chloride (Saline Flush) 2.5 ml FLUSH ASDIRECTED PRN PRN Reason: Keep Vein Open Sterile Water (Sterile Water For Irrigation) 1,000 ml IRR ASDIRECTED PRN PRN Reason: delivery Terbutaline Sulfate (Brethine) 0.25 mg SUBCUT ASDIRECTED PRN PRN Reason: Tacysystole - Assessment Assessment (Free Text/Narrative):: Status post primary section postoperative day #1 patient is doing well - Plan Plan (Free Text/Narrative):: Regular care planning to discharge the patient in a.m.
--- NOTE | 2017-11-16 10:51 | OR ---
SURGEON: Aquiles Carvajal MD DATE OF PROCEDURE: 11/15/2017 PREOPERATIVE DIAGNOSIS: Intrauterine , 40 weeks plus failed induction. POSTOPERATIVE DIAGNOSIS: Intrauterine , 40 weeks plus failed induction. OPERATION PERFORMED: Primary low transverse section. SECURITY SPECIALIST: Chloe Chand M.D. ANESTHESIA: Spinal; Eduar Davies and Dr. Logan. ESTIMATED BLOOD LOSS: 650 mL. COMPLICATIONS: None. FINDINGS: Viable male fetus. score reported to be 8 and 9. The weight is not available. INDICATION FOR SURGERY: This patient is 32, primigravida, and she is 40+ weeks, almost 41. She is admitted for induction. We tried to induce her with Cytotec for 48 hours without any success, and decision made to do a primary low transverse section for failure to progress. PROCEDURE IN DETAIL: The patient was brought to the OR, properly identified, and after adequate level of spinal anesthesia, the patient was prepped and draped in sterile fashion as usual with a Marquis catheter in the bladder, and a time-out taken. A low transverse Pfannenstiel skin incision was done. Oanh fascia and rectus fascia were opened in direction of the incision. The 2 recti muscles were and peritoneal cavity was entered. Bladder flap was raised in the usual manner, pushing the bladder away from the lower uterine segment. Low transverse uterine incision extended manually and the fetus was delivered, it cried immediately and handed to the resuscitative team, headed by the surveyor instrument assistant, and the placenta delivered spontaneous, complete, and intact. Repair of the lower uterine segment was done with 2-0 Vicryl continuous interlocking in 2 layers. Reperitonealization done with 3-0 Vicryl continuous. Then, the peritoneal cavity evacuated completely from all blood and blood clot and closed with 3-0 Vicryl continuous. The rectus fascia was closed with #1 PDS double strand continuous. The Oanh's fascia was closed with 3-0 Vicryl continuous and the skin closed with skin luzma, Insorb, and Dermabond. Instrument and sponge counts were correct. The patient tolerated the procedure well and went to recovery room in stable general condition. COLT / RAMANDEEP /[id number]
[2017-11-17] MEDS ORDERED: Ibuprofen 800 MG Tab PO PRN (00:30)
[2017-11-17] MEDS: Docusate Sodium 100 MG Cap PO SCH (08:51)
--- NOTE | 2017-11-17 09:57 | PCM.PNPP ---
- General Info Date of Service: 11/17/17 Functional Status: Reports: Pain Controlled - Review of Systems General: Reports: No Symptoms HEENT: Reports: No Symptoms Pulmonary: Reports: No Symptoms Cardiovascular: Reports: No Symptoms Gastrointestinal: Reports: No Symptoms Genitourinary: Reports: No Symptoms Musculoskeletal: Reports: No Symptoms Skin: Reports: No Symptoms Neurological: Reports: No Symptoms Psychiatric: Reports: No Symptoms - General Info Date of Service: 11/17/17 - Patient Data Vital Signs - Most Recent: Last Vital Signs Temp 36.8 C 11/17/17 07:57 Pulse 90 11/17/17 07:57 Resp 20 11/17/17 07:57 BP 119/77 11/17/17 07:57 Pulse Ox 95 11/17/17 07:57 Weight - Most Recent: 98.43 kg Med Orders - Current: Current Medications Bisacodyl (Dulcolax) 10 mg RECTAL .ONCE PRN PRN Reason: Constipation Butorphanol Tartrate (Stadol) 1 mg IVPUSH Q1H PRN PRN Reason: Pain Carboprost Tromethamine (Hemabate Ds) 250 mcg IM ASDIRECTED PRN PRN Reason: Post Hemorrhage Citric Acid/Sodium Citrate (Bicitra Solution) 30 ml PO .ONCE [facility] Diphenhydramine HCl (Benadryl) 25 mg IVPUSH Q6H PRN PRN Reason: Itching or Nausea Docusate Sodium (Colace) 100 mg PO BID [facility] Last Admin: 11/17/17 08:51 Dose: 100 mg Emollient Ointment (Lansinoh Hpa) 0 gm TOP ASDIRECTED PRN PRN Reason: Sore Nipples Lactated Ringer's (Ringers, Lactated) 1,000 mls @ 150 mls/hr IV ASDIRECTED [facility] Oxytocin/Sodium Chloride (Oxytocin 30 Unit/500 Ml-Ns) 30 unit in 500 mls @ 999 mls/hr IV TITRATE [facility] Oxytocin/Sodium Chloride (Oxytocin 30 Unit/500 Ml-Ns) 30 unit in 500 mls @ 250 mls/hr IV TITRATE [facility] Lactated Ringer's (Ringers, Lactated) 1,000 mls @ 500 mls/hr IV .BOLUS [facility] Lactated Ringer's (Ringers, Lactated) 1,000 mls @ 125 mls/hr IV ASDIRECTED [facility] Last Admin: 11/15/17 20:56 Dose: 125 mls/hr Ibuprofen (Motrin) 800 mg PO Q8H PRN PRN Reason: mild pain or fever Last Admin: 11/17/17 04:12 Dose: 800 mg Lidocaine HCl (Xylocaine 1%) 50 ml INJECT .ONCE PRN PRN Reason: Laceration repair Methylergonovine Maleate (Methergine) 0.2 mg IM ASDIRECTED PRN PRN Reason: Post Hemorrhage Misoprostol (Cytotec) 200 mcg PO .ONCE PRN PRN Reason: Post Hemorrhage Misoprostol (Cytotec) 25 mcg VAG .ONCE [facility] Last Admin: 11/14/17 01:52 Dose: 25 mcg Misoprostol (Cytotec) 25 mcg VAG Q4H PRN PRN Reason: Cervical Ripening Last Admin: 11/15/17 10:45 Dose: 25 mcg Misoprostol (Cytotec) 25 mcg PO Q4H PRN PRN Reason: Cervical Ripening Last Admin: 11/15/17 10:45 Dose: 25 mcg Misoprostol (Cytotec) 25 mcg PO .ONCE [facility] Last Admin: 11/15/17 06:13 Dose: 25 mcg Nalbuphine HCl (Nubain) 10 mg IVPUSH Q1H PRN PRN Reason: Pain (severe 7-10) Ondansetron HCl (Zofran) 4 mg IVPUSH Q4H PRN PRN Reason: Nausea/Vomiting Oxycodone/Acetaminophen (Percocet 325-5 Mg) 1 tab PO ONETIME PRN PRN Reason: Pain (moderate 4-6) Last Admin: 11/17/17 04:11 Dose: 1 tab Oxycodone/Acetaminophen (Percocet 325-5 Mg) 1 tab PO Q4H PRN PRN Reason: Pain (moderate 4-6) Oxycodone/Acetaminophen (Percocet 325-5 Mg) 2 tab PO Q4H PRN PRN Reason: Pain (moderate 4-6) Sodium Chloride (Saline Flush) 10 ml FLUSH ASDIRECTED PRN PRN Reason: Keep Vein Open Sodium Chloride (Saline Flush) 2.5 ml FLUSH ASDIRECTED PRN PRN Reason: Keep Vein Open Sodium Chloride (Saline Flush) 10 ml FLUSH ASDIRECTED PRN PRN Reason: Keep Vein Open Sodium Chloride (Saline Flush) 2.5 ml FLUSH ASDIRECTED PRN PRN Reason: Keep Vein Open Sterile Water (Sterile Water For Irrigation) 1,000 ml IRR ASDIRECTED PRN PRN Reason: delivery Terbutaline Sulfate (Brethine) 0.25 mg SUBCUT ASDIRECTED PRN PRN Reason: Tacysystole Discontinued Medications Cefazolin Sodium (Ancef) Confirm Administered Dose 1 gm .ROUTE .STK-MED ONE Stop: 11/15/17 17:21 Cefazolin Sodium (Ancef) Confirm Administered Dose 1 gm .ROUTE .STK-MED ONE Stop: 11/15/17 17:22 Ephedrine Sulfate (Ephedrine Sulfate) Confirm Administered Dose 50 mg .ROUTE .STK-MED ONE Stop: 11/15/17 17:11 Ephedrine Sulfate (Ephedrine Sulfate) Confirm Administered Dose 50 mg .ROUTE .STK-MED ONE Stop: 11/15/17 17:21 Fentanyl (Sublimaze) 50 mcg IVPUSH Q5M PRN PRN Reason: Pain (severe 7-10) Stop: 11/16/17 18:13 Cefazolin Sodium/Dextrose 2 gm (/ Premix) 50 mls @ 100 mls/hr IV ONETIME ONE Stop: 11/15/17 16:07 Last Admin: 11/15/17 23:06 Dose: Not Given Ketorolac Tromethamine (Toradol) 30 mg IVPUSH Q6H [facility] Stop: 11/16/17 18:31 Last Admin: 11/16/17 18:27 Dose: 30 mg Morphine Sulfate (Duramorph Pf) Confirm Administered Dose 1 mg .ROUTE .STK-MED ONE Stop: 11/15/17 17:14 Nalbuphine HCl (Nubain) Confirm Administered Dose 10 mg .ROUTE .STK-MED ONE Stop: 11/15/17 17:11 Nalbuphine HCl (Nubain) Confirm Administered Dose 10 mg .ROUTE .STK-MED ONE Stop: 11/15/17 17:21 Nalbuphine HCl (Nubain) 5 mg IVPUSH Q3H PRN PRN Reason: Pruritis Stop: 11/16/17 18:14 Octyl Cyanoacrylate (Dermabond Advance) Confirm Administered Dose 1 applic .ROUTE .STK-MED ONE Stop: 11/15/17 15:33 Oxytocin (Pitocin) Confirm Administered Dose 20 unit .ROUTE .STK-MED ONE Stop: 11/15/17 17:11 Oxytocin (Pitocin) Confirm Administered Dose 20 unit .ROUTE .STK-MED ONE Stop: 11/15/17 17:21 - Interaction Disposition, : [place] in Room with Family Infant Interaction: Holding Infant Feeding: Attempted ; Nursed Fair/Poor Support Person: - Recovery Exam Fundal Tone: Firm Fundal Level: 1 Fingerbreadths Below Umbilicus Fundal Placement: Midline Lochia Amount: Scant Lochia Color: Rubra/Red Perineum Description: Intact, Minimal Bruising/Swelling Episiotomy/Laceration: None Bladder Status: Voiding Urinary Elimination: Indwelling Catheter - Exam General: Alert, Oriented HEENT: Pupils Equal Neck: Supple Lungs: Clear to Auscultation, Normal Respiratory Effort Cardiovascular: Regular Rate, Regular Rhythm GI/Abdominal Exam: Normal Bowel Sounds, Soft, Non-Tender, No Organomegaly, No Distention, No Abnormal Bruit, No Mass, Pelvis Stable Extremities: Normal Inspection, Normal Range of Motion, Non-Tender, No Pedal Edema, Normal Capillary Refill Skin: Warm, Dry, Intact Wound/Incisions: Healing Well Neurological: No New Focal Deficit Psy/Mental Status: Alert, Normal Affect, Normal Mood - Problem List Review Problem List Initiated/Reviewed/Updated: Yes - My Orders Last 24 Hours: My Active Orders 11/17/17 00:30 Ibuprofen [Motrin] 800 mg PO Q8H PRN - Plan Plan:: IOL Term A:32yo EDC 11/14/2017 40wk today. IOL term, A+/RI/GBS neg. P: Admit, IOL cytotec to pitocin, GBS neg, anticipate , Dr Carvajal updated on pt status
== END 2017-11-17 11:30 | disposition home or self-care (01) | DRG 766 ==
LOC: MW.OB 00:09 → OBSVTOIN 11-15 15:38 → MW.OB 11-15 19:59
PROVIDERS: ADMIT Obstetrics & Gynecology; ATTEND Obstetrics & Gynecology
PROC: 10D00Z1 Extraction of Products of Conception, Low, Open Approach (ICD-10-PCS; principal; 2017-11-15)
PROC: 3E0P7VZ Introduction of Hormone into Female Reproductive, Via Natural or Artificial Opening (ICD-10-PCS; 2017-11-15)
PROC: 3E033VJ Introduction of Other Hormone into Peripheral Vein, Percutaneous Approach (ICD-10-PCS; 2017-11-15)
DX: O62.0 Primary inadequate contractions (principal); Z3A.40 40 weeks gestation of pregnancy; Z37.0 Single live birth; Z87.891 Personal history of nicotine dependence
CPT/HCPCS: 01961; 36415; 59025; 85014; 85018; 85027; 86850; 86900; 86901; A9270-GY; J0690; J1885; J2274; J2300; J2590; J7120